=== PATIENT | female | born 1980 | race Caucasian/White ===

== ENCOUNTER → 2017-01-20 | Day surgery (SDC) | payer MEDICAID ==
--- NOTE | 2017-01-19 10:48 | MH ---
cc: JONA NOBLE MD DATE OF ADMISSION: 01/20/2017 ADMITTING DIAGNOSIS: REASON FOR ADMISSION This patient is a 36-year-old white female. 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 HISTORY OF PRESENT ILLNESS The patient has been seen by our practice several times. She had a Pap smear done in December which was returned as high-grade squamous intraepithelial lesion with a positive virus HPV. We gave her the option of proceeding with colposcopic-directed biopsy. She, however, refused and wanted to go directly to loop electrical excisional procedure. PAST MEDICAL HISTORY Significant that the patient does have a slightly elevated SGOT on her liver function panel but has no history of any liver disease. SOCIAL HISTORY The patient is a heavy smoker and she does admit to social drinking once per day. ALLERGIES No known drug allergies to medications. FAMILY HISTORY Significant that her brother has a history of heart attack. Father has a history of hypertension and heart disease. Her son has a history of autism. PAST SURGICAL HISTORY Noncontributory. REVIEW OF SYSTEMS Essentially negative. PHYSICAL EXAMINATION GENERAL: The patient was seen well-developed, well-nourished, in no acute distress. VITAL SIGNS: Her blood pressure was in the office 122/80, pulse of 70, respirations 12, weight was 203. HEENT: Negative. CHEST: Clear to auscultation. CARDIOVASCULAR: Regular rate. ABDOMEN: Soft. Bowel sounds were positive. PELVIC EXAMINATION: Normal external genitalia. The cervix was seen without any lacerations. Uterus was normal size. There was no adnexal masses palpable. EXTREMITIES: No cyanosis, clubbing or edema. NEUROPSYCHIATRIC: The patient is oriented x 3 and showed no gross neurocranial deficit. IMPRESSION ON ADMISSION High-grade squamous intraepithelial lesion of the cervix. PLAN Loop electrical excision. Jona Noble MD JSG/SSB /10:35 AM /10:41 AM
[~2017-01-20] VITALS: Ht 177.8 cm; Wt 92.7 kg
[~2017-01-20] MED LIST: ACETAMINOPHEN 1000 MG/100 ML VIAL IV ONE; CHLORHEXIDINE GLUCONATE 2 % 1 PACK (2 CLOTHS) TOPICAL PRN; DEXAMETHASONE SOD PHOS 4 MG/ML VIAL ONE; DO NOT ADM ANY ANTICOAGULANT DRUGS PRN; HYOS0.127 SL; INSULIN HUMAN REGULAR 1,000 UNITS/10 ML VIAL SQ PRN; LACTATED RINGER'S 1000 ML IV PRN; METOPROLOL TARTRATE 25 MG TAB PO PRN; MIDAZOLAM HCL 2 MG/2 ML VIAL ONE; ONDANSETRON HCL 4 MG/2 ML VIAL IV PUSH ONE; POVIDONE IODINE 5% (ANTISEPSIS KIT) 4 APPLICATIONS EACH NARE PRN; PROPOFOL 200 MG/20 ML AMP IV ONE; SODIUM CHLORID 0.9% 500 ML IV PRN; ceFAZolin 2 GM PREMIX 50 ML IV SCH; fentaNYL CITRATE 250 MCG/5 ML AMP ONE
[2017-01-20 06:23] VITALS: BP 123/91; PULSE 89; RESP 16; TEMP 99.3; O2SAT 98
--- NOTE | 2017-01-20 08:58 | MP ---
cc: JONA NOBLE MD DATE OF SURGERY: 01/20/2017 PREOPERATIVE DIAGNOSIS Severe cervical dysplasia. POSTOPERATIVE DIAGNOSIS Severe cervical dysplasia. OPERATION Two-stage loop electrical excision. SURGEON Aide ANESTHESIA General. ESTIMATED BLOOD LOSS Minimal. FINDINGS None. ARCHITECTURE CONSULTANT None. PROCEDURE The patient was prepped and draped in dorsal lithotomy position. A weighted speculum was placed in the posterior vaginal vault and the anterior lip of the cervix grasped with a single-tooth tenaculum. Using a medium size wire loop the transformation zone was excised. Next, using a small size wire loop a small portion of the endocervical canal was excised, and using the ball electrode the cut cervix was hemostased. After hemostasis was noted the tenaculum and speculum were removed. The patient returned to the recovery room in stable condition. Jona Noble MD JSG/BT /8:43 AM /8:51 AM
[2017-01-20 09:53] VITALS: BP 135/84; PULSE 78; RESP 18; TEMP 98.1; O2SAT 98
== END | disposition home or self-care (01) ==
LOC: HSDC 05:41
PROVIDERS: ATTEND Obstetrics & Gynecology
DX: D06.0 Carcinoma in situ of endocervix (principal)
CPT/HCPCS: 00940; 57522; 88307; J0131; J0690; J1100; J2250; J2405; J3010; J7120; 88305